=== PATIENT | female | born 1950 | race Two or more races ===

== ENCOUNTER 2023-09-11 09:55 | Inpatient (IN) | payer MEDICARE ==
[~2023-09-11] VITALS: Ht 154.9 cm; Wt 58.4 kg
[2023-09-11 10:48] LABS: Basophils # (auto) 0 10 ^3/uL (0-0.2); Basophils % (auto) 0.8 % (0.0-2.0); Eosinophils # (auto) 0.1 10 ^3/uL (0-0.8); Eosinophils % (auto) 2.1 % (0.0-7.0); Hematocrit 39.9 % (36.0-46.0); Hemoglobin 13.4 g/dL (12.2-16.2); Lymphocytes # (auto) 1.9 10 ^3/uL (0.4-5.4); Lymphocytes % (auto) 36.1 % (10.0-50.0); Mean Corpuscular Hemoglobin 28.8 pg (28.0-32.0); Mean Corpuscular Hgb Conc. 33.5 g/dL (32.0-36.0); Monocytes # (auto) 0.3 10 ^3/uL (0-1.3); Monocytes % (auto) 6.2 % (0.0-12.0); Neutrophils # (auto) 2.9 10 ^3/uL (1.6-8.6); Neutrophils % (auto) 54.8 % (37.0-80.0); Red Blood Cells 4.64 10^6/uL (4.0-5.20); Red Cell Distribution Width 14.2 % (11.8-14.3); White Blood Cell 5.4 10^3/uL (4.4-10.8)
[2023-09-11 11:27] LABS: Chloride 104 mmol/L (98-107); Sodium 136 mmol/L (136-145)
[2023-09-11 11:29] LABS: Anion Gap 6 (5-15); Calcium 9.4 mg/dL (8.7-10.4); Carbon Dioxide 26 mmol/L (20-30)
[2023-09-11 11:34] LABS: BUN/Creatinine Ratio 19.6 (10.0-20.0); Blood Urea Nitrogen 11 mg/dL (9-23); Glucose 171 mg/dL (74-106)
[2023-09-11 12:26] LABS: Urine Bacteria None Seen /hpf (None Seen); Urine WBC None Seen /hpf (0 - 5)
[2023-09-11 12:38] LABS: Urine Blood Negative /uL (Negative); Urine Clarity Clear (Clear); Urine Color Colorless (Yellow); Urine Protein, UAD Negative (Negative); Urine Specific Gravity 1.008 (1.001-1.035); Urine Urobilinogen Normal (Negative)
[2023-09-11 13:30] VITALS: PULSE 71; RESP 19; O2SAT 96
[2023-09-11] MEDS: HYDROcodone-ACET 5/325MG TAB PO ONE (13:39)
[2023-09-11] MEDS ORDERED: TEMAZEPAM 15 MG CAP PO PRN (14:45)
[2023-09-11] MEDS ORDERED: DEXTROSE (50%) 50ML SYRG IV PRN ×2 (14:45→15:30)
[2023-09-11] MEDS ORDERED: ACCU-CHEK COMFORT CURVE STRIP VI SCH (17:00)
[2023-09-11] MEDS ORDERED: InsuLIN REG 1unit/0.01ml Soln (100units/ml) SC SCH (17:00)
[2023-09-11] MEDS: TETRAHYDROZOLINE HCL 0.05% OPTH(EYE)SOL RIGHTEYE SCH (18:00)
[2023-09-11] MEDS: InsuLIN REG 1unit/0.01ml Soln (100units/ml) SC SCH (18:04)
[2023-09-11] MEDS: ACCU-CHEK COMFORT CURVE STRIP VI SCH (18:06)
[2023-09-11] MEDS: SODIUM CHLORIDE 0.9% 1,000 ML IV SCH (19:12)
[2023-09-11] MEDS: ATORVASTATIN 20 MG TAB PO SCH (22:14)
[2023-09-11] MEDS: HYDROcodone-ACET 5/325MG TAB PO PRN (22:15)
[2023-09-12] VITALS (7 sets, daily range): BP systolic 112–139; BP diastolic 59–78; PULSE 67–83; RESP 14–20; TEMP 97.8–98.3; O2SAT 94–96
[2023-09-12] MEDS ORDERED: DICY10CA PO (00:46)
[2023-09-12] MEDS ORDERED: OMEP20TA PO (00:46)
[2023-09-12] MEDS ORDERED: LISI20TA56 PO (00:46)
[2023-09-12] MEDS ORDERED: METF-929 PO (00:46)
[2023-09-12] MEDS ORDERED: IBUP200C14 PO (00:48)
[2023-09-12] MEDS ORDERED: ALBUAER3 IN (00:49)
[2023-09-12] MEDS: ONDANSETRON HCL 4 MG/2 ML VIAL IV PRN (06:08)
[2023-09-12 06:42] LABS: Alanine Aminotransferase 18 U/L (7-40); Albumin 3.9 g/dL (3.2-4.8); Alkaline Phosphatase 114 U/L (46-116); Anion Gap 6 (5-15); Aspartate Aminotransferase 24 U/L (13-40); BUN/Creatinine Ratio 21.7 (10.0-20.0); Blood Urea Nitrogen 10 mg/dL (9-23); Calcium 8.6 mg/dL (8.5-10.1); Carbon Dioxide 25 mmol/L (20-30); Chloride 107 mmol/L (98-107); Cholesterol 155 mg/dL (< 200); Glucose 121 mg/dL (74-106); HDL Cholesterol 50 mg/dL (40-59); LDL Cholesterol 96 mg/dL (< 100); Sodium 138 mmol/L (136-145); Triglycerides 102 mg/dL (< 150)
[2023-09-12 06:43] LABS: Bilirubin, Total 0.5 mg/dL (0.2-1.0); Total Protein 6.1 g/dL (5.7-8.2)
[2023-09-12 07:04] LABS: Basophils # (auto) 0 10 ^3/uL (0-0.2); Basophils % (auto) 0.7 % (0.0-2.0); Eosinophils # (auto) 0.1 10 ^3/uL (0-0.8); Eosinophils % (auto) 2.5 % (0.0-7.0); Hematocrit 36.9 % (36.0-46.0); Hemoglobin 12.5 g/dL (12.2-16.2); Lymphocytes # (auto) 2.1 10 ^3/uL (0.4-5.4); Lymphocytes % (auto) 39.3 % (10.0-50.0); Mean Corpuscular Hemoglobin 28.8 pg (28.0-32.0); Mean Corpuscular Hgb Conc. 33.8 g/dL (32.0-36.0); Mean Corpuscular Volume 85.4 fL (80.0-100.0); Monocytes # (auto) 0.4 10 ^3/uL (0-1.3); Monocytes % (auto) 7.1 % (0.0-12.0); Neutrophils # (auto) 2.7 10 ^3/uL (1.6-8.6); Neutrophils % (auto) 50.4 % (37.0-80.0); Nucleated Red Blood Cells % 0.1 %; Red Blood Cells 4.33 10^6/uL (4.0-5.20); Red Cell Distribution Width 14.1 % (11.8-14.3); White Blood Cell 5.3 10^3/uL (4.4-10.8)
[2023-09-12] MEDS: ASPirin 81 mg TAB PO SCH (09:45)
[2023-09-12] MEDS ORDERED: LORazepam 2MG/ML-1ML VIAL IV PRN (15:00)
[2023-09-12] MEDS: cefTRIAXone 1GM/50ML D5W 50 ML IV ONE (15:15)
[2023-09-12 15:48] LABS: Erythrocyte Sedimentation Rate 9 mm/hr (0-20)
[2023-09-13] VITALS (7 sets, daily range): BP systolic 116–151; BP diastolic 53–78; PULSE 55–73; RESP 12–18; TEMP 97.4–98.7; O2SAT 96–97
[2023-09-13] MEDS: cefTRIAXone 1GM/50ML D5W 50 ML IV SCH (08:54)
[2023-09-13 10:49] LABS: Hepatitis B Surface Antigen Negative (Negative)
[2023-09-13 11:11] LABS: Hepatitis C Antibody Negative (Negative)
[2023-09-13] MEDS: DOCUSATE SOD 100 MG CAP PO PRN (16:40)
[2023-09-14] VITALS (8 sets, daily range): BP systolic 111–132; BP diastolic 55–72; PULSE 61–78; RESP 16–18; TEMP 97.6–98.2; O2SAT 94–97
[2023-09-14] MEDS: LACTULOSE 20Gm/30ML SOLN PO ONE (13:52)
[2023-09-14] MEDS: DOCUSATE SOD 100 MG CAP PO SCH (21:26)
[2023-09-15 08:00] VITALS: RESP 18
[2023-09-15 08:35] VITALS: BP 113/54; PULSE 71; RESP 16; TEMP 98.4; O2SAT 97
[2023-09-15] MEDS ORDERED: LACTULOSE 20Gm/30ML SOLN PO PRN (10:00)
[2023-09-15 13:00] VITALS: BP 111/53; PULSE 72; RESP 16; TEMP 98.7; O2SAT 96
[2023-09-15 17:00] VITALS: BP 100/57; PULSE 79; RESP 18; TEMP 97.6; O2SAT 94
[2023-09-15 19:30] VITALS: PULSE 77; RESP 17; O2SAT 97
[2023-09-15 21:00] VITALS: BP 90/49; PULSE 83; RESP 20; TEMP 98.3; O2SAT 95
[2023-09-16] VITALS (8 sets, daily range): BP systolic 113–147; BP diastolic 57–79; PULSE 65–83; RESP 17–20; TEMP 97.4–98.4; O2SAT 93–98
[2023-09-17] VITALS (7 sets, daily range): BP systolic 108–136; BP diastolic 55–75; PULSE 66–81; RESP 16–20; TEMP 97.8–98.7; O2SAT 94–98
[2023-09-17] MEDS ORDERED: LORazepam 2MG/ML-1ML VIAL IV PRN (10:30)
[2023-09-17] MEDS: GADOTERATE MEG 10 MMOL/20ml INJ (0.5MMOL/ml) IV ONE (11:30)
[2023-09-18 01:18] VITALS: BP 124/57; PULSE 78; RESP 18; TEMP 98.5; O2SAT 97
[2023-09-18 05:20] VITALS: BP 106/58; PULSE 70; RESP 18; TEMP 98.4; O2SAT 97
[2023-09-18 08:00] VITALS: PULSE 79; RESP 18; O2SAT 98
[2023-09-18 09:00] VITALS: BP 106/55; PULSE 70; RESP 20; TEMP 98.1; O2SAT 95
[2023-09-18 13:00] VITALS: BP 110/51; PULSE 69; RESP 16; TEMP 97.1; O2SAT 94
[2023-09-18 15:19] VITALS: BP 109/76; PULSE 96; TEMP 98.3; O2SAT 98
== END 2023-09-18 16:00 | disposition home or self-care (01) | DRG 556 ==
LOC: ER 09:55 → OVERFLOW 15:28 → CENTRAL 15:32
PROVIDERS: ADMIT Nurse Practitioner Family; ATTEND Internal Medicine Geriatric Medicine
DX: M62.838 Other muscle spasm (principal); E23.6 Other disorders of pituitary gland; H11.31 Conjunctival hemorrhage, right eye; E11.65 Type 2 diabetes mellitus with hyperglycemia; I10 Essential (primary) hypertension; H66.92 Otitis media, unspecified, left ear; J45.909 Unspecified asthma, uncomplicated; H53.8 Other visual disturbances; K59.00 Constipation, unspecified; F17.200 Nicotine dependence, unspecified, uncomplicated; G43.109 Migraine with aura, not intractable, without status migrainosus; Z79.82 Long term (current) use of aspirin; Z79.899 Other long term (current) drug therapy; Z79.4 Long term (current) use of insulin; Z82.49 Family history of ischemic heart disease and other diseases of the circulatory system
CPT/HCPCS: 36415; 70450; 70540; 70551; 70553; 80048; 80053; 80061; 81001; 82962; 84100; 85025; 85652; 86141; 86803; 87340; 93005; 93306; 93886; 97116; 97163; 97530; G0378; J1815; J2405

== ENCOUNTER 2024-06-08 12:10 | Emergency (ER) | payer MEDICARE, MEDICAID ==
[~2024-06-08] VITALS: Ht 180.3 cm; Wt 52.0 kg
[~2024-06-08 12:10] MED LIST: ALBUAER3 IN; DICY10CA PO; IBUP200C14 PO; LISI20TA56 PO; METF-929 PO; OMEP20TA PO
--- NOTE | 2024-06-08 12:37 | ED.PDOC ---
History of Present Illness HPI Comments 73-year-old female presents with a chief complaint of headache, chest tightness, and jaw pain. Patient states that her pain is localized to her left temporal region, non-radiating, describes as aching, and rates her pain a 7/10. Patient also reports that she has some jaw pain, but denies any biting or clamping down with her teeth. Patient denies dizziness, vision changes, or other neuromuscular changes. No other symptoms or modifying factors present at this time. Chief Complaint: Headache Time Seen by MD: 12:32 Primary Care Provider: none Reviewed Notes: Medications, Allergies Allergies: Coded Allergies: Morphine (Verified Allergy, Unknown, 09/11/23) vomit Home Meds Reported Medications Albuterol Sulfate (VENTOLIN MDI) 90 Mcg Ih, 90 MCG IN, INH 09/12/23 Ibuprofen (Advil) 200 Mg Cap, 200 MG PO, CAP 09/12/23 Dicyclomine Hcl (BENTYL CAPSULE) 10 Mg Cp, 1 CAP PO BID, #90 CAP 11 Refills 09/12/23 Omeprazole (Gnp Omeprazole) 20 Mg Tab, 1 TAB PO DAILY, #90 TAB 1 Refill 09/12/23 Lisinopril (Lisinopril) 20 Mg Tab, 1 TAB PO DAILY, #30 TAB 5 Refills 09/12/23 Metformin HCl (Metformin Hydrochloride) 1,000 Mg Tab, 1000 MG PO, TAB 09/12/23 Information Source: Patient Mode of Arrival: Ambulatory Severity: Moderate Timing: Days Duration: Since onset Prehospital treatment: None Past Medical History PAST MEDICAL HISTORY: DM, HTN Surgical History: Denies all surgeries Family History Family History: Unknown Social History Smoker: Non-Smoker Alcohol: Denies ETOH Use Drugs: Denies Drug Use Lives In: Home Constitutional: denies: chills, diaphoresis, fatigue, fever, malaise, sweats, weakness, others EENTM: denies: blurred vision, double vision, ear bleeding, ear discharge, ear drainage, ear pain, ear ringing, eye pain, eye redness, hearing loss, mouth pain, mouth swelling, nasal discharge, nose bleeding, nose congestion, nose pain, photophobia, tearing, throat pain, throat swelling, voice changes, others Respiratory: denies: cough, hemoptysis, orthopnea, SOB at rest, shortness of breath, SOB with excertion, stridor, wheezing, others Cardiovascular: reports: chest pain; denies: dizzy spells, diaphoresis, Dyspnea on exertion, edema, irregular heart beat, left arm pain, lightheadedness, pa lpitations, PND, syncope, others Gastrointestinal: denies: abdomen distended, abdominal pain, blood streaked bowels, constipated, diarrhea, dysphagia, difficulty swallowing, hematemesis, melena, nausea, poor appetite, poor fluid intake, rectal bleeding, rectal pain, vomiting, others Genitourinary: denies: abnormal vagina bleeding, burning, dyspareunia, dysuria, flank pain, frequency, hematuria, incontinence, pain, , vagina discharge, urgency, others Neurological: reports: headache; denies: dizziness, fainting, left sided numbness, left sided weakness, numbness, paresthesia, pre-existing deficit, right sided numbness, right sided weakness, seizure, speech problems, tingling, tremors, weakness, others Musculoskeletal: denies: back pain, gout, joint pain, joint swelling, muscle pain, muscle stiffness, neck pain, others Integumetry: denies: bruises, change in color, change in hair/nails, dryness, laceration, lesions, lumps, rash, wounds, others Allergic/Immunocompromised: denies: Difficulty Healing, Frequent Infections, Hives, Itching, others Hematologic/Lymphatic: denies: anemia, blood clots, easy bleeding, easy bruising, swollen glands, others Endocrine: denies: excessive hunger, excessive sweating, excessive thirst, excessive urination, flushing, intolerance to cold, intolerance to heat, unexplained weight gain, unexplained weight loss, others Psychiatric: denies: anxiety, bipolar disorder, depression, hopeless, panic disorder, schizophrenia, sleepless, suicidal, others All Other Systems: Reviewed and Negative Physical Exam General Appearance: No Apparent Distress, Normal HEENT: Normal ENT Inspection, Pharynx Normal, TMs Normal Neck: Full Range of Motion, Non-Tender, Normal, Normal Inspection Respiratory: Chest Non-Tender, Lungs Clear, No Accessory Muscle Use, No Respiratory Distress, Normal Breath Sounds Cardiovascular: No Edema, No JVD, No Murmur, No Gallop, Normal Peripheral Pulses, Regular Rate/Rhythm Breast Exam: Deferred Gastrointestinal: No Organomegaly, Non Tender, No Pulsatile Mass, Normal Bowel Sounds, Soft Genitalia: Deferred Pelvic: Deferred Rectal: Deferred Extremities: No calf tenderness, Normal capillary refill, Normal inspection, No rmal range of motion, Non-tender, No pedal edema Musculoskeletal : Apperance: Normal Neurologic: Alert, 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 Was a procedure done?: No Differential Dx Considerations may include: Differential diagnosis includes but not limited to: angina, myocardial infarction, pulmonary embolus, pleurisy, musculoskeletal etiology and others X-Ray, Labs, Meds, VS Vital Signs Date Time Temp Pulse Resp B/P (MAP) Pulse Ox O2 Delivery O2 Flow Rate FiO2 06/08/24 15:03 98.2 66 20 145/72 (96) 97 98.2 06/08/24 15:03 66 20 97 Room Air 0 06/08/24 12:22 71 06/08/24 12:21 98.0 79 17 148/72 (97) 95 Lab Test 06/08/24 14:16 06/08/24 13:06 06/08/24 12:29 Range/Units Troponin I High Sensitivity < 3 L < 3 L </=34 ng/L White Blood Count 7.5 4.4-10.8 10^3/uL Red Blood Count 4.50 4.0-5.20 10^6/uL Hemoglobin 13.1 12.2-16.2 g/dL Hematocrit 38.5 36.0-46.0 % Mean Corpuscular Volume 85.4 80.0-100.0 fL Mean Corpuscular Hemoglobin 29.1 28.0-32.0 pg Mean Corpuscular Hemoglobin Concent 34.1 32.0-36.0 g/dL Red Cell Distribution Width 13.3 11.8-14.3 % Platelet Count 202 140-450 10^3/uL Mean Platelet Volume 8.1 6.9-10.8 fL Neutrophils (%) (Auto) 70.2 37.0-80.0 % Lymphocytes (%) (Auto) 22.8 10.0-50.0 % Monocytes (%) (Auto) 6.5 0.0-12.0 % Eosinophils (%) (Auto) 0.1 0.0-7.0 % Basophils (%) (Auto) 0.4 0.0-2.0 % Neutrophils # (Auto) 5.3 1.6-8.6 10 ^3/uL Lymphocytes # (Auto) 1.7 0.4-5.4 10 ^3/uL Monocytes # (Auto) 0.5 0-1.3 10 ^3/uL Eosinophils # (Auto) 0 0-0.8 10 ^3/uL Basophils # (Auto) 0 0-0.2 10 ^3/uL Nucleated Red Blood Cells 0.1 % Sodium Level 135 L 136-145 mmol/L Potassium Level 4.5 3.5-5.1 mmol/L Chloride Level 102 98-107 mmol/L Carbon Dioxide Level 27 20-31 mmol/L Anion Gap 6 5-15 Blood Urea Nitrogen 21 9-23 mg/dL Creatinine 0.64 0.550-1.02 mg/dL Glomerular Filtration Rate Calc 93 >90 mL/min BUN/Creatinine Ratio 32.8 H 10.0-20.0 Serum Glucose 124 H 74-106 mg/dL Calcium Level 9.8 8.7-10.4 mg/dL Magnesium Level 2.1 1.6-2.6 mg/dL Total Bilirubin 0.4 0.2-1.0 mg/dL Aspartate Amino Transferase (AST) 14 13-40 U/L Alanine Aminotransferase (ALT) 17 7-40 U/L Alkaline Phosphatase 117 H 46-116 U/L Total Protein 6.6 5.7-8.2 g/dL Albumin 4.7 3.2-4.8 g/dL POC Glucose 148 H 70-106 mg/dl Time of 1ST Reevaluation: 12:52 Reevaluation 1ST: Unchanged Time of 2ND Reevaluation: 14:00 Reevaluation 2ND: Improved Patient Education/Counseling: Diagnosis, Treatment, Prognosis Family Education/Counseling: Diagnosis, Treatment, Prognosis Departure 1 Departure Time of Disposition: 14:00 Impression: Primary Impression: Jaw pain Additional Impression: Headache Disposition: 01 HOME / SELF CARE / HOMELESS Condition: Stable Discharged With: Self Critical Care Note Critical Care Time?: No Stability Stability form required: No I personally scribed for TAMIKO COLIN MD ([email or web address]) on 06/08/24 at 12:37. Electronically submitted by Irving Lutz ([email or web address]). TAMIKO COLIN MD Jun 08, 2024 12:37
[2024-06-08 13:12] LABS: Basophils # (auto) 0 10 ^3/uL (0-0.2); Basophils % (auto) 0.4 % (0.0-2.0); Eosinophils # (auto) 0 10 ^3/uL (0-0.8); Eosinophils % (auto) 0.1 % (0.0-7.0); Hematocrit 38.5 % (36.0-46.0); Hemoglobin 13.1 g/dL (12.2-16.2); Lymphocytes # (auto) 1.7 10 ^3/uL (0.4-5.4); Lymphocytes % (auto) 22.8 % (10.0-50.0); Mean Corpuscular Hemoglobin 29.1 pg (28.0-32.0); Mean Corpuscular Hgb Conc. 34.1 g/dL (32.0-36.0); Mean Corpuscular Volume 85.4 fL (80.0-100.0); Monocytes # (auto) 0.5 10 ^3/uL (0-1.3); Monocytes % (auto) 6.5 % (0.0-12.0); Neutrophils # (auto) 5.3 10 ^3/uL (1.6-8.6); Neutrophils % (auto) 70.2 % (37.0-80.0); Nucleated Red Blood Cells % 0.1 %; Platelet Count (auto) 202 10^3/uL (140-450); Red Cell Distribution Width 13.3 % (11.8-14.3); White Blood Cell 7.5 10^3/uL (4.4-10.8)
--- NOTE | 2024-06-08 13:16 | DVH ---
CLINICAL INFORMATION: 73 years old, Female; headache, vertigo. TECHNIQUE: Axial imaging was obtained through the brain without contrast. Coronal and sagittal refor matted images were obtained, reviewed, and stored. Images were reviewed in brain and bone windows. A ll CT scans at this medical facility are performed using dose modulation techniques as appropriate to a performed exam including the following: Automated exposure control was utilized; adjustment of the MA and/or KV according to patient size; and use of iterative reconstruction technique. CTDIvol = 53.8 mGy DLP = 971.77 mGy-cm COMPARISON: CT HEAD WITHOUT CONTRAST on DOS: 09/11/23 FINDINGS: There is no acute intracranial hemorrhage or extraaxial fluid collection. No mass effect o r midline shift. The ventricles and sulci are within normal limits in size for age. Basal cisterns a re patent. The calvarium is unremarkable. Paranasal sinuses and mastoid air cells are clear. IMPRESSION: No CT evidence of acute intracranial abnormality.
[2024-06-08 13:40] LABS: Alanine Aminotransferase 17 U/L (7-40); Albumin 4.7 g/dL (3.2-4.8); Anion Gap 6 (5-15); Aspartate Aminotransferase 14 U/L (13-40); BUN/Creatinine Ratio 32.8 (10.0-20.0); Blood Urea Nitrogen 21 mg/dL (9-23); Calcium 9.8 mg/dL (8.7-10.4); Carbon Dioxide 27 mmol/L (20-31); Chloride 102 mmol/L (98-107); Magnesium 2.1 mg/dL (1.6-2.6); Potassium 4.5 mmol/L (3.5-5.1)
[2024-06-08 13:41] LABS: Bilirubin, Total 0.4 mg/dL (0.2-1.0); Total Protein 6.6 g/dL (5.7-8.2)
[2024-06-08 13:44] LABS: Alkaline Phosphatase 117 U/L (46-116); Glucose 124 mg/dL (74-106); Sodium 135 mmol/L (136-145)
[2024-06-08 15:03] VITALS: BP 145/72; PULSE 66; RESP 20; TEMP 98.2; O2SAT 97
--- NOTE | 2024-06-09 09:43 | ECG ---
[facility] Test Date: 2024-06-08 Test Time: 12:22:40 Pat Name: AUDREY BRAVODepartment: ER Room: Gender: F Rfid Technician: INDY : 1950 Requested By: TAMIKO COLIN Order Number: [id number] Reading MD: Measurements Intervals [place] Rate: 71 P: 51 [place]: 107 QRS: 38 QRSD: 93 T: 6 QT: 384 QTc: 418 Interpretive Statements Sinus rhythm Short [place] interval Abnormal R-wave progression, early transition Please click the below link to view image of tracing.
== END 2024-06-08 15:13 | disposition home or self-care (01) ==
LOC: ER 12:10
DX: R68.89 Other general symptoms and signs (principal); R51.9 Headache, unspecified; I10 Essential (primary) hypertension; E11.9 Type 2 diabetes mellitus without complications; Z79.899 Other long term (current) drug therapy; Z88.5 Allergy status to narcotic agent
CPT/HCPCS: 36415; 70450; 80053; 82962; 83735; 84484; 85025; 93005